=== PATIENT | male | born 1975 | race Caucasian/White ===

== ENCOUNTER 2017-02-09 10:22 | Outpatient (RCR) | payer OTHER ==
[~2017-02-09 10:22] MED LIST: AMO500 PO; HUMALOG; LANTUS
--- NOTE | 2017-02-10 17:04 | Medical Nutrition Therapy ---
Nutritional Education Nutrition Education Topic: Diabetic Nutrition Learning Readiness: Eager Teaching Methods: Discussion, Demonstration Response to Teaching: Verbalize understanding Teaching Recipient: Patient, Significant Other Nutrition Counseling: Late entry for 02/09: Provided diabetic eduction and insertion of Medtronic 670 insulin pump. Pt does not have CGM sensors at this time. Pt will use manual mode until sensors can be used. Pt will check BG 8X/day. Pt on the following regiment: Basel rate 1.6 Carb ratio 25 Insulin sensitivity 17 Active insulin time 3.5 hrs. Will call within 24 hrs, 3 days and 1 week to ensure to issues. 02/10 16:00 Called L/M will call again 02/11. 02/11 14:24 Called L/M- instructed pt to call if having any issues. Provided home phone number to call over weekend if having issues. Nutrition Monitoring & Eval Nutritional Comment: Provided 2 hrs diabetic education on insulin pump management and insertion of insulin pump. Copies To Copies to: MICK FRENCH BETH Feb 10, 2017 16:50
== END 2017-03-09 12:34 | disposition home or self-care (01) ==
LOC: DIET 10:22
PROVIDERS: ATTEND Family Medicine
DX: Z71.3 Dietary counseling and surveillance (principal); E10.65 Type 1 diabetes mellitus with hyperglycemia
CPT/HCPCS: G0109 ×2

== ENCOUNTER 2017-04-13 10:26 | Outpatient (CLI) | payer OTHER ==
--- NOTE | 2017-04-13 16:37 | Medical Nutrition Therapy ---
Nutritional Education Nutrition Education Topic: Diabetic Nutrition Learning Readiness: Interested Teaching Methods: Discussion, Demonstration Response to Teaching: Verbalize understanding Teaching Recipient: Patient Nutrition Counseling: Provided education on using Medtronic 670 insulin pump. Reviewed CGM and transmitter usage, cleaning, charging. Pt inserted CGM and connected to insulin pump. Pt will use CGM with manual mode of pump for 1 week and then can switch over to automatic mode. Reviewed auto mode with pt and expectations including pump adjusting basal delivery based on CGM, basal delivery stopping when anticiated low, need for calibration 2-3X/day and need to cont bolis for meal and correction dose when recommended by pump. Pt has been asked to download reports on [employer] to allow monitoring. Nutrition Monitoring & Eval RD Patient Assessment Time: [address] Assessment Type: RD Education Nutritional Comment: Provided 60 minutes diabetes education in a group setting focusing on insulin pump management. Copies To Copies to: MICK FRENCH BETH Apr 13, 2017 16:37
== END 2017-06-21 14:25 | disposition home or self-care (01) ==
LOC: DIET 10:26
PROVIDERS: ATTEND Family Medicine
DX: E10.65 Type 1 diabetes mellitus with hyperglycemia (principal); I10 Essential (primary) hypertension; Z79.4 Long term (current) use of insulin
CPT/HCPCS: G0109 ×2

== ENCOUNTER → 2018-05-21 | Outpatient (REF) | payer OTHER ==
[2018-05-21 13:28] LABS: PLATELET COUNT, AUTOMATED 385 K/uL (150-450)
== END ==
PROVIDERS: ATTEND Family Medicine
DX: J20.8 Acute bronchitis due to other specified organisms (principal)
CPT/HCPCS: 82040; 82247; 82310; 82374; 82435; 82565; 82947; 84075; 84132; 84155; 84295; 84450; 84460; 84520; 85025; 86140